=== PATIENT | female | born 1940 | race African-American/Black ===

== ENCOUNTER 2023-09-21 23:06 | Emergency (ER) | payer MEDICARE, SELFPAY ==
[2023-09-21 23:08] VITALS: BP 158/65; BMI 22.6
[2023-09-21 23:13] VITALS: BP 158/65
[2023-09-21 23:19] LABS: % Basophils 0.5 % (0-2); % Eosinophils 1.8 % (0-6); % Immature Granulocytes 0.2 % (0-0.5); % Lymphocytes 34.5 % (20.5-51.1); % Monocytes 10.3 % (1.7-9.3); % Neutrophils 52.7 % (42.2-75.2); Absolute Eosinophils 0.1 10^3/uL (0-0.7); Absolute Lymphocytes 1.9 10^3/uL (1.2-3.4); Absolute Monocytes 0.6 10^3/uL (0.1-0.6); Absolute Neutrophils 2.9 10^3/uL (1.4-6.5); Hematocrit 38.8 % (37.0-47.0); Hemoglobin 12.7 g/dL (12.0-16.0); Mean Corp Hgb Conc. 32.7 g/dL (33.0-37.0); Mean Corpuscular Hgb 31.8 pg (27.0-31.0); Mean Corpuscular Volume 97.2 fL (81.0-99.0); Mean Platelet Volume 9.9 fL (7.4-10.4); Nucleated Red Blood Cells % 0 %; Platelet Count 206 10^3/uL (130-400); Red Blood Cell Count 3.99 10^6/uL (4.20-5.40); Red Cell Dist. Width 12.4 % (11.5-14.5); White Blood Cell Count 5.6 10^3/uL (4.8-10.8)
[2023-09-21 23:31] LABS: ALT (SGPT) 21 U/L (0-35); AST (SGOT) 39 U/L (14-36); Albumin 4.4 g/dl (3.5-5.0); Alkaline Phosphatase 57 U/L (38-126); Blood Urea Nitrogen 25 mg/dl (7-17); Calcium 9.8 mg/dl (8.4-10.2); Carbon Dioxide 33 mmol/L (22-30); Chloride 98 mmol/L (98-107); Estimated Creatinine Clearance 50 ml/min; Glucose 93 mg/dl (70-99); Potassium 3.5 mmol/L (3.5-5.1); Sodium 134 mmol/L (135-145); Total Bilirubin 1.2 mg/dl (0.2-1.3); Total Protein 7.4 g/dl (6.3-8.2); eGFR > 60.00
--- NOTE | 2023-09-21 23:41 | ED.GENMED ---
History of Present Illness
General
Chief Complaint: Chest Pain
Source: patient, family and ambulance crew
Exam Limitations: none
Time Seen by Provider: 09/21/23 23:20
Nursing documentation reviewed up to this point in time: agreed with
Travel History
Have you had any contact with someone who has COVID-19?: No
Do you have any symptoms of coronavirus? Fever > 100 degrees, chills, cough, shortness of breath, sore throat, loss of taste or smell, muscle aches, or headache?: No
History of Present Illness
History of Present Illness:
83-year-old female presents emergency department from home after having chest pain in her lower chest. It has resolved. She is a poor historian, as she has a history of dementia. EMS gave 4 x 81 mg aspirin. She has had similar chest pain to this
in the past. She had a cardiac workup done at [facility].
Past History
Past History
ED Past Medical History: HTN, Hypothyroidism, Psychiatric (Depression) and Other (Dementia)
ED Past Surgical History: Other (Lumpectomy left breast)
Social History
Tobacco: Non-smoker
Alcohol: None
Drug: None
Living: with family
Review of Systems
Review of Systems
Allergies reviewed?: Yes
All Other Systems: Not applicable
Constitutional: Reports no symptoms
EENT: Reports no symptoms
Respiratory: Reports no symptoms
Cardiac: Reports chest pain
ABD/GI: Reports no symptoms
: Reports no symptoms
Musculoskeletal: Reports no symptoms
Neurological: Reports no symptoms
Endocrine: Reports no symptoms
Hematologic/Lymphatic: Reports no symptoms
Psychiatric: Reports no symptoms
Phy Exam
Physical Exam
Physical Exam:
Physical Exam
General: no apparent distress, not acutely ill
Neck: supple. no meningeal signs. normal posterior pharynx
Heart: s1/s2 regular rate and rhythm, no murmur. equal radial
pulses.
HEENT: Pupils equal round reactive to light, EOMI
Lungs: no acute respiratory distress. clear bilaterally
Abdomen: normal bowel sounds. not tender. no CVAT
Neuro: alert and oriented to person and place. no focal neurological deficits cranial nerves II through XII intact
Skin: no rash
Psychiatric: well kept. interactive and cooperative
Extremities: no edema. no calf tenderness. negative homans. good distal pulses
Scores
Heart Score for Chest Pain Patients
STEMI patient?: No
History: Slightly or Non-Suspicious
ECG: Normal
Age: >/= 65 years
Risk Factors: 1 or 2 Risk Factors
Troponin: </= Normal Limit
Heart Score for Chest Pain Patients: 3
Heart Score Risk: 2.5% MACE over next 6 weeks
Course
Orders/Labs/Results
Orders:
Orders
09/21/23 23:08
Electrocardiogram (*1) Urgent
Reason for Study: Chest Pain
Cardiac Monitoring- Treatment ONCE
EKG- Treatment ONCE
IV Insert/Care/Rem.- Treatment PRN
O2 Therapy [RESP] Urgent
Titrate/Wean O2 to maintain O2 sat greater than (%): 90
Special Instructions: Maintain sats >/=90%
Pulse Ox/spot Check [RESP] Urgent
Quantity: 1
Special Instructions: ON ROOM AIR
09/21/23 23:11
Complete Blood Count/With Diff Urgent
Comprehensive Metabolic Panel Urgent
Lipase Urgent
Comment: ADD ON
Troponin I Urgent
09/22/23 00:49
Add On- LAB Urgent
Tests Added?: lipase
09/22/23 01:57
Troponin I Urgent
Abnormal Lab Results
09/21/23
23:11
RBC 3.99 L 10^6/uL
(4.20-5.40)
MCH 31.8 H pg
(27.0-31.0)
MCHC 32.7 L g/dL
(33.0-37.0)
Monocytes % 10.3 H %
(1.7-9.3)
Sodium 134 L mmol/L
(135-145)
Carbon Dioxide 33 H mmol/L
(22-30)
BUN 25 H mg/dl
(7-17)
AST 39 H U/L
(14-36)
Lipase 323 H U/L
(23-300)
09/21/23 23:11
09/21/23 23:11
Vital Signs
Initial and Last Documented VS:
Initial Vital Signs
Temp Pulse Resp BP Pulse Ox
99.0 F 63 15 158/65 100
09/21/23 23:08 09/21/23 23:08 09/21/23 23:08 09/21/23 23:08 09/21/23 23:08
Last Documented Vital Signs
Temp Pulse Resp BP Pulse Ox
99.0 F 54 13 120/67 99
09/21/23 23:08 09/22/23 03:00 09/22/23 03:00 09/22/23 03:00 09/22/23 02:45
MDM/Problems Addressed
Differential Diagnosis Includes:
ACS, PE, musculoskeletal pain
MDM/Problems Addressed:
83-year-old female with transient chest pain, resolved without intervention. Patient denies chest pain at this time. Initial troponin negative, no signs of ischemia on EKG. Will repeat troponin, if negative will discharge home.
Chronic conditions affecting care: HTN
Acute Exacerbation and/or Progression of Chronic Illness: HTN and Other (Alzheimer's)
*Pulse Oximetry
Patient hypoxic: no
*EKG
Interpreted by ED Provider?: Yes
EKG Intrepretation Date: 09/21/23
EKG Intrepretation Time: 23:10
Interpretation: abnormal
Comparison EKG: no comparison EKG present
Heart Rate: 69
Rate: normal
Rhythm: sinus
Winn: left axis deviation
Interval: normal interval
QRS Pattern: normal QRS
Ischemia: no ischemia
*Custodial Foreman Interpretation
Rate: normal
Interpretation: normal
Heart Rate: 65
Rhythm: sinus
*Critical Care Note
Total Time (30-74mins, 75-104mins- exclusive of procedures): Not Applicable
Patient Management
Social determinants of health affecting care: Living situation and Strong social support
Update Note
Update Note:
Repeat troponin negative, mild elevation in lipase nontender abdomen, do not suspect pancreatitis
ED Attending Note
-
Portions of this chart may have been created with voice recognition software.� Occasional wrong word or��sound alike� substitutions may have occurred due to the inherent limitations of voice recognition software.
Discharge Plan
Departure
Patient Disposition: Home (Routine Discharge)
Date of Disposition: 09/22/23
Time of Disposition: 02:57
Patient with high blood pressure during this ER visit?: Yes
Condition: Good
Discharge Problem:
Chest pain
Instructions: Chest Pain DCA Follow Up, BLOOD PRESSURE
Prescriptions:
No Action
latanoprost 0.005 % Drops
1 drp OPHTHALMIC (EYE) DAILY
donepezil 5 mg Tablet
5 mg PO HS
Rx Instructions:
stopped 09/20, wanted to give a break for a week.
levothyroxine 25 mcg Tablet
25 mcg PO DAILY
timolol 0.5 % Drops
1 drp OPHTHALMIC (EYE) DAILY
hydrochlorothiazide 12.5 mg Capsule
12.5 mg PO DAILY
sertraline 50 mg Tablet
50 mg PO DAILY
calcium carbonate 1,000 mg Tablet
1,250 mg PO DAILY
memantine 10 mg Tablet
10 mg PO BID
cholecalciferol (vitamin D3) [Vitamin D3] 25 mcg (1,000 unit) Tablet
25 mcg PO DAILY
coenzyme Q10 100 mg Tablet
100 mg PO DAILY
Referrals:
UNKNOWN - PT DOES,NOT KNOW [Family Provider] -
Interventions
Interventions:
*Risk Screen - Suicide Last Done: 09/21/23 23:08
*General Assessment Last Done: 09/21/23 23:08
*Neglect/Abuse Screening Last Done: 09/21/23 23:08
ED- Fall Risk Assessment Last Done: 09/22/23 00:16
*ED COVID-19 Vaccine History Last Done: 09/21/23 23:08
*Nursing Disposition Last Done: 09/22/23 03:20
ED- Cardiac Assessment Last Done: 09/22/23 00:16
Discharge Date and Time
Discharge Date/Time: 09/22/23 03:20
[2023-09-21 23:42] LABS: Troponin I < 0.012 ng/ml
[2023-09-22 00:08] VITALS: BP 151/78
--- NOTE | 2023-09-22 00:14 | EDRN ---
Patient ambulated to the restroom and back in bed sleeping, updated daughter on lab results and plan for repeat blood test around 0200, no further complaints or needs right now.
[2023-09-22 01:00] VITALS: BP 150/75
[2023-09-22 01:20] LABS: Lipase 323 U/L (23-300)
[2023-09-22 02:05] VITALS: BP 154/75
[2023-09-22 02:31] LABS: Troponin I < 0.012 ng/ml
[2023-09-22 03:00] VITALS: BP 120/67
== END 2023-09-22 03:20 | disposition home or self-care (01) ==
LOC: EMR 23:06
PROVIDERS: Emergency Medicine; EMERGENCY PHYSICIAN Emergency Medicine
DX: R07.89 Other chest pain (principal); G30.9 Alzheimer's disease, unspecified; F02.83 Dementia in other diseases classified elsewhere, unspecified severity, with mood disturbance; E03.9 Hypothyroidism, unspecified; F32.A Depression, unspecified; I10 Essential (primary) hypertension
CPT/HCPCS: 99283; 80053; 83690; 84484; 85025; 93005

== ENCOUNTER 2024-08-21 07:07 | Emergency (ER) | payer MEDICARE, SELFPAY ==
[2024-08-21 07:13] VITALS: BP 169/83
[2024-08-21 07:39] LABS: % Eosinophils 4.2 % (0-6); % Immature Granulocytes 0.2 % (0-0.5); % Lymphocytes 36.5 % (20.5-51.1); % Monocytes 8.4 % (1.7-9.3); % Neutrophils 49.7 % (42.2-75.2); Absolute Eosinophils 0.2 10^3/uL (0-0.7); Absolute Lymphocytes 1.5 10^3/uL (1.2-3.4); Absolute Monocytes 0.3 10^3/uL (0.1-0.6); Hematocrit 43.7 % (37.0-47.0); Hemoglobin 13.9 g/dL (12.0-16.0); Mean Corp Hgb Conc. 31.8 g/dL (33.0-37.0); Mean Corpuscular Hgb 31.4 pg (27.0-31.0); Mean Corpuscular Volume 98.6 fL (81.0-99.0); Mean Platelet Volume 10.9 fL (7.4-10.4); Nucleated Red Blood Cells % 0 %; Platelet Count 188 10^3/uL (130-400); Red Blood Cell Count 4.43 10^6/uL (4.20-5.40); Red Cell Dist. Width 12.2 % (11.5-14.5)
--- NOTE | 2024-08-21 07:42 | ED.GENMED ---
History of Present Illness
<Aisha Stockton MD, Resident - Last Filed: 08/21/24 09:53>
General
Chief Complaint: Fatigue
Source: patient and family
Exam Limitations: dementia
Time Seen by Provider: 08/21/24 07:14
Nursing documentation reviewed up to this point in time: agreed with
History of Present Illness
History of Present Illness:
83yo F with PMH dementia, HTN, hypothyroidism who presents from home to ED for fatigue/difficulty rousing. She lives with her daughter who tried to wake the patient at 6:20am but says it was much more difficult than usual. When she did wake up,
patient was listless, confused, slumped over. At time of evaluation in ED, daughter reports patient is improved though still not entirely at her baseline mental status.
Prior to this, she was in her usual state of health-- had some dizziness yesterday and body aches this morning which is her baseline. She reports a month of constipation with occasional blood streaks on toilet paper. Otherwise review of systems was
negative. Her recent medication changes include starting atorvastatin 08/05 and changing dose of galantamine from BID to once nightly on 08/08.
Past History
<Aisha Stockton MD, Resident - Last Filed: 08/21/24 09:53>
Past History
ED Past Medical History: HTN, Hypothyroidism, Psychiatric (Depression) and Other (Dementia)
ED Past Surgical History: Other (Lumpectomy left breast)
Patient has exhibited threatening behavior?: No
Social History
Tobacco: Non-smoker
Alcohol: None
Drug: None
Living: with family
Family History
Family History: Other (noncontributory)
Review of Systems
<Aisha Stockton MD, Resident - Last Filed: 08/21/24 09:53>
Review of Systems
Allergies reviewed?: Yes
Constitutional: Reports fatigue (see HPI); Denies fever or chills
EENT: Reports no symptoms
Respiratory: Reports no symptoms; Denies cough, hemoptysis or trouble breathing
Cardiac: Reports no symptoms; Denies chest pain, palpitations or syncope
ABD/GI: Reports constipated; Denies abdominal pain, nausea, vomiting, diarrhea or black stools
: Reports no symptoms
Musculoskeletal: Reports other (diffuse body aches in AM)
Skin: Reports no symptoms
Neurological: Reports dizzy
Endocrine: Reports no symptoms
Hematologic/Lymphatic: Reports no symptoms
Psychiatric: Reports no symptoms
Phy Exam
<Aisha Stockton MD, Resident - Last Filed: 08/21/24 09:53>
General Physical Exam
General Presentation: well appearing and no apparent distress
General age: appears stated age
General Skin: warm and dry
General Habitus: elderly
General Mental: alert
General Hydration: appears well hydrated
Cardiovascular Exam
Cardiovascular Exam: regular rate/rhythm, no edema and no murmur
Pulmonary Exam
Pulmonary Exam: lungs clear, no respiratory distress, no crackles, no rhonchi, no wheezing and no cough
Neurological Exam
Neurological Exam: alert, oriented x3 (oriented to person, place, winter/almost spring 2024) and speech normal
Course
<Aisha Stockton MD, Resident - Last Filed: 08/21/24 09:53>
Orders/Labs/Results
Orders:
Orders
08/21/24 07:23
COVID-19 Antigen Urgent
Source: Nasal Swab
Complete Blood Count/With Diff Urgent
Comprehensive Metabolic Panel Urgent
Influenza A+B Rapid Molecular Urgent
ELE Source: Nasal Swab
Specimen Description:
08/21/24 07:40
Electrocardiogram (*1) Urgent
Reason for Study: Fatigue / Weakness
CT Head W/o Iv Contrast Urgent
Comment:
Reason For Exam: altered mental status
EKG- Treatment ONCE
08/21/24 07:41
CR Chest - 2 Views Urgent
Comment:
Reason For Exam: rule out pneumonia
08/21/24 07:53
Urinalysis Reflex To Culture Urgent
Date Specimen was Collected: 08/21/24
Time Specimen was Collected: 07:52
Abnormal Lab Results
08/21/24
07:23
WBC 4.0 L 10^3/uL
(4.8-10.8)
MCH 31.4 H pg
(27.0-31.0)
MCHC 31.8 L g/dL
(33.0-37.0)
MPV 10.9 H fL
(7.4-10.4)
Carbon Dioxide 33 H mmol/L
(22-30)
Glucose 104 H mg/dl
(70-99)
08/21/24 07:23
08/21/24 07:23
Vital Signs
Initial and Last Documented VS:
Initial Vital Signs
Temp Pulse Resp BP Pulse Ox
98.1 F 61 16 169/83 95
08/21/24 07:13 08/21/24 07:13 08/21/24 07:13 08/21/24 07:13 08/21/24 07:13
Last Documented Vital Signs
Temp Pulse Resp BP Pulse Ox
98.1 F 60 14 123/104 99
08/21/24 07:13 08/21/24 09:26 08/21/24 09:26 08/21/24 09:26 08/21/24 09:26
Christallt;Samir Wyman, DO - Last Filed: 08/21/24 14:06>
Orders/Labs/Results
Orders:
Orders
08/21/24 07:23
COVID-19 Antigen Urgent
Source: Nasal Swab
Complete Blood Count/With Diff Urgent
Comprehensive Metabolic Panel Urgent
Influenza A+B Rapid Molecular Urgent
ELE Source: Nasal Swab
Specimen Description:
08/21/24 07:40
Electrocardiogram (*1) Urgent
Reason for Study: Fatigue / Weakness
CT Head W/o Iv Contrast Urgent
Comment:
Reason For Exam: altered mental status
EKG- Treatment ONCE
08/21/24 07:41
CR Chest - 2 Views Urgent
Comment:
Reason For Exam: rule out pneumonia
08/21/24 07:53
Urinalysis Reflex To Culture Urgent
Date Specimen was Collected: 08/21/24
Time Specimen was Collected: 07:52
Abnormal Lab Results
08/21/24
07:23
WBC 4.0 L 10^3/uL
(4.8-10.8)
MCH 31.4 H pg
(27.0-31.0)
MCHC 31.8 L g/dL
(33.0-37.0)
MPV 10.9 H fL
(7.4-10.4)
Carbon Dioxide 33 H mmol/L
(22-30)
Glucose 104 H mg/dl
(70-99)
08/21/24 07:23
08/21/24 07:23
Vital Signs
Initial and Last Documented VS:
Initial Vital Signs
Temp Pulse Resp BP Pulse Ox
98.1 F 61 16 169/83 95
08/21/24 07:13 08/21/24 07:13 08/21/24 07:13 08/21/24 07:13 08/21/24 07:13
Last Documented Vital Signs
Temp Pulse Resp BP Pulse Ox
98.1 F 60 14 123/104 99
08/21/24 07:13 08/21/24 09:26 08/21/24 09:26 08/21/24 09:26 08/21/24 09:26
<Aisha Stockton MD, Resident - Last Filed: 08/21/24 09:53>
MDM/Problems Addressed
Differential Diagnosis Includes:
TIA, cardiac arrhythmia, electrolyte abnormality, infection
MDM/Problems Addressed:
83yo F with PMH dementia, HTN, hypothyroidism who presents to from home due to AMS
Will check CBC, CMP, flu/covid swabs, EKG, UA, head CT, chest xray
Given patient is improving/almost at her baseline mental status and unknown last normal time, not a candidate for TNK
Keep on continuous library monitor and await pending results
<Aisha Stockton MD, Resident - Last Filed: 08/21/24 09:53>
*Critical Care Note
Total Time (30-74mins, 75-104mins- exclusive of procedures): Not Applicable
<Aisha Stockton MD, Resident - Last Filed: 08/21/24 09:53>
Update Note
Update Note:
0915: At bedside to update patient/family. Patient sleeping comfortably and was not disturbed. Per daughter, patient has returned to her baseline metal status-- is easily arousable and conversant as usual. CBC/CMP unremarkable, flu/covid negative,
head CT no acute stroke/intracranial pathology, chest xray with no signs of pneumonia, EKG sinus bradycardia (HR 58). Await UA results.
0930: UA noninfectious. Patient sleeping comfortably but easily arousable. Reports she is feeling 'much better.' Reviewed results with patient and daughter at bedside. Stable for discharge home. Recommend decreasing dose of galantamine from 8mg
nightly to 4mg nightly. Emphasized importance of close follow up with PCP and neurologist who is the prescriber of galantamine. They were both understanding and agreeable with plan.
ED Attending Note
<Aisha Stockton MD, Resident - Last Filed: 08/21/24 09:53>
-
Portions of this chart may have been created with voice recognition software.� Occasional wrong word or��sound alike� substitutions may have occurred due to the inherent limitations of voice recognition software.
<Samir Wyman, DO - Last Filed: 08/21/24 14:06>
ED Attending Note
Patient seen and examined by attending physician: Yes
I performed a history and physical exam of patient and discussed management with resident, I reviewed resident's note and agree with documented findings and plan of care.: Yes
ED Attending Note:
I reviewed and agree with history treatment plan by Aisha Stockton MD. My exam revealed
Physical Exam
General: Elderly, no apparent distress, not acutely ill
Neck: supple. no meningeal signs. normal posterior pharynx
Heart: s1/s2 regular rate and rhythm, no murmur. equal radial
pulses.
HEENT: Pupils equal round reactive to light, EOMI
Lungs: no acute respiratory distress. clear bilaterally
Abdomen: normal bowel sounds. not tender. no CVAT
Neuro: alert and oriented to person. no focal neurological deficits cranial nerves II through XII intact
Skin: no rash
Psychiatric: well kept. interactive and cooperative
Extremities: no edema. no calf tenderness. negative homans. good distal pulses
83-year-old female with altered mental status, difficult to arouse. Suspect this was due to a change in her galantamine. Do not suspect CVA or TIA. Stable for discharge. Will have her take 4 mg instead of 8 mg of galantamine and follow-up with
primary care.
Discharge Plan
Departure
Patient Disposition: Home (Routine Discharge)
Date of Disposition: 08/21/24
Time of Disposition: 09:25
Patient with high blood pressure during this ER visit?: Yes
Discharge Problem:
Change in mental state
Instructions: BLOOD PRESSURE
Prescriptions:
No Action
latanoprost 0.005 % Drops
1 drp OPHTHALMIC (EYE) DAILY
donepezil 5 mg Tablet
5 mg PO HS
Rx Instructions:
stopped /, wanted to give a break for a week.
levothyroxine 25 mcg Tablet
25 mcg PO DAILY
timolol 0.5 % Drops
1 drp OPHTHALMIC (EYE) DAILY
hydrochlorothiazide 12.5 mg Capsule
12.5 mg PO DAILY
sertraline 50 mg Tablet
50 mg PO DAILY
calcium carbonate 1,000 mg Tablet
1,250 mg PO DAILY
memantine 10 mg Tablet
10 mg PO BID
cholecalciferol (vitamin D3) [Vitamin D3] 25 mcg (1,000 unit) Tablet
25 mcg PO DAILY
coenzyme Q10 100 mg Tablet
100 mg PO DAILY
Referrals:
Elias Murillo DO [Non-Admitting Privileges] - Next open appointment (Call your Primary Care Provider to schedule follow up appointment after being seen in the Emergency Room.)
Reginald Matta MD [Non-Admitting Privileges] - Next open appointment (Call your Neurologist to schedule follow up appointment and discuss dose of galantamine. )
UNKNOWN - PT DOES,NOT KNOW [Family Provider] -
Activity Restrictions/Additional Instructions:
You were seen in the Emergency Room for altered mental status and lethargy.
Your head CT, chest xray, EKG, blood work, and urinalysis did not show a cause of your symptoms.
Your flu test was negative, and your covid test was negative.
The recent increase in nighttime galantamine dose may have contributed to this. You should decrease the dose of galantamine to 4mg at night.
Please call your Primary Care Provider to schedule close follow up after being seen in the Emergency Room.
Please call your neurologist to schedule close follow up and to discuss the dose of galantamine.
Return to the Emergency Room for worsening symptoms or new concerns.
Interventions
Interventions:
*Risk Screen - Suicide Last Done: 08/21/24 07:14
*General Assessment Last Done: 08/21/24 07:14
*Neglect/Abuse Screening Last Done: 08/21/24 07:14
ED- Fall Risk Assessment Last Done: 08/21/24 10:06
*ED COVID-19 Vaccine History Last Done: 08/21/24 07:14
*Nursing Disposition Last Done: 08/21/24 10:06
Discharge Date and Time
Discharge Date/Time: 08/21/24 10:07
Print Language: TURKISH
[2024-08-21 07:46] LABS: ALT (SGPT) 18 U/L (0-35); AST (SGOT) 27 U/L (14-36); Albumin 4.2 g/dl (3.5-5.0); Alkaline Phosphatase 63 U/L (38-126); Blood Urea Nitrogen 15 mg/dl (7-17); Calcium 9.8 mg/dl (8.4-10.2); Carbon Dioxide 33 mmol/L (22-30); Chloride 100 mmol/L (98-107); Glucose 104 mg/dl (70-99); Potassium 3.7 mmol/L (3.5-5.1); Sodium 140 mmol/L (135-145); Total Bilirubin 1.3 mg/dl (0.2-1.3); Total Protein 6.9 g/dl (6.3-8.2); eGFR > 60.00
[2024-08-21 07:51] LABS: COVID-19 Antigen Negative (Negative)
[2024-08-21 08:35] LABS: Urine Albumin Negative (Neg - Trace); Urine Bilirubin Negative (Negative); Urine Character Cloudy (Clear); Urine Color Yellow; Urine Glucose Negative (Negative); Urine Ketone Negative (Negative); Urine Leukocyte Negative (Negative); Urine Nitrite Negative (Negative); Urine Occult Blood Negative (Negative); Urine Urobilinogen Negative (Neg - 1+)
[2024-08-21 09:26] VITALS: BP 123/104
== END 2024-08-21 10:07 | disposition home or self-care (01) ==
LOC: EMR 07:07
PROVIDERS: Student in an Organized Health Care Education/Training Program; EMERGENCY PHYSICIAN Emergency Medicine
DX: R41.82 Altered mental status, unspecified (principal); I10 Essential (primary) hypertension; E03.9 Hypothyroidism, unspecified; Z11.52 Encounter for screening for COVID-19
CPT/HCPCS: 99285; 70450; 71046; 80053; 81003; 85025; 87502; 87811; 93005

== ENCOUNTER 2024-09-19 08:04 | Emergency (ER) | payer MEDICARE, SELFPAY ==
[2024-09-19] VITALS (18 sets, daily range): BP systolic 95–141; BP diastolic 52–104; PULSE 65–69; O2SAT 95; BMI 22.8
[2024-09-19 08:33] LABS: % Basophils 0.5 % (0-2); % Eosinophils 0.3 % (0-6); % Immature Granulocytes 0.5 % (0-0.5); % Lymphocytes 16.8 % (20.5-51.1); % Monocytes 9.3 % (1.7-9.3); % Neutrophils 72.6 % (42.2-75.2); Absolute Lymphocytes 1.1 10^3/uL (1.2-3.4); Absolute Monocytes 0.6 10^3/uL (0.1-0.6); Absolute Neutrophils 4.8 10^3/uL (1.4-6.5); Hematocrit 40.7 % (37.0-47.0); Hemoglobin 12.8 g/dL (12.0-16.0); Mean Corp Hgb Conc. 31.4 g/dL (33.0-37.0); Mean Corpuscular Hgb 31.7 pg (27.0-31.0); Mean Corpuscular Volume 100.7 fL (81.0-99.0); Mean Platelet Volume 10.5 fL (7.4-10.4); Nucleated Red Blood Cells % 0 %; Platelet Count 159 10^3/uL (130-400); Red Blood Cell Count 4.04 10^6/uL (4.20-5.40); Red Cell Dist. Width 12.3 % (11.5-14.5); White Blood Cell Count 6.6 10^3/uL (4.8-10.8)
--- NOTE | 2024-09-19 08:33 | ED.GENMED ---
History of Present Illness
General
Chief Complaint: Failure to Thrive
Source: patient, records and ambulance crew
Exam Limitations: dementia
Time Seen by Provider: 09/19/24 08:21
Nursing documentation reviewed up to this point in time: agreed with
History of Present Illness
History of Present Illness:
84-year-old female with a history of dementia, hypertension, hypothyroidism who presents to the ER from home where she lives with her daughter; presents via EMS for evaluation of generalized weakness. Patient is slightly limited as a historian due
to her dementia but she can provide some reasonable background and she is actually oriented x 3 here in the ER today. She says that she has been feeling weak and mildly dizzy specifically with standing up. She cannot tell me exactly how long she
has been feeling this way. She says she does not have any headache, chest pain, abdominal pain, back pain. She has not noticed any cough. Denies any vomiting or diarrhea recently. She says that this was the reason her daughter called EMS.
According to EMS report patient was noted to be weaker than usual requiring more assistance when getting up and going to the bathroom today and was sent to the ER for assessment. I did reach out to patient's daughter to try and get collateral
history directly from her but no answer x 1�will try again later.
UPDATE
Daughter now at bedside provides collateral history�she essentially confirmed patient's story. She says that recently patient had been having some dizziness was seen in the ER few weeks ago for this and it was thought to be related to galantamine.
This was discontinued about 2 weeks ago by primary and dizziness had improved. Today patient got up to go to the bathroom and wash her face and daughter was helping her as usual. Daughter says that while she was washing her face patient began to
feel dizzy and 'slumped down' daughter says she transiently passed out. Daughter laid her down in bed and called EMS to bring her to the hospital for assessment. Daughter does note she has had a mild cough the past few days but otherwise in her
normal state of health.
Past History
Past History
ED Past Medical History: HTN, Hypothyroidism, Psychiatric (Depression) and Other (Dementia)
ED Past Surgical History: Other (Lumpectomy left breast)
Patient has exhibited threatening behavior?: No
Social History
Tobacco: Non-smoker
Alcohol: None
Drug: None
Living: with family
Family History
Family History: Other (noncontributory)
Review of Systems
Review of Systems
All Other Systems: ROS reviewed and negative except as documented in HPI and ROS
Constitutional: Reports fatigue
EENT: Denies sore throat
Respiratory: Denies cough or trouble breathing
Cardiac: Denies chest pain
ABD/GI: Denies abdominal pain, nausea, vomiting or diarrhea
: Denies dysuria or flank pain
Musculoskeletal: Denies neck pain or back pain
Neurological: Reports dizzy; Denies headache
Phy Exam
Physical Exam
Physical Exam:
General: Awake, alert, oriented x3; no acute distress
Head: Normocephalic, atraumatic
Eyes: Conjunctiva normal, EOMI without nystagmus, pupils equal round and reactive to light bilaterally
Throat: Airway intact, handling secretions
Neck: Trachea midline, supple without meningismus
Lungs: Clear to auscultation bilaterally, no wheezing, rales, rhonchi
Heart: Regular rate and rhythm, systolic murmur
Abd: Soft, non distended, nontender
Neuro: Cranial nerves intact, speech fluid, motor and sensory intact in all extremities
Extremities: No edema in extremities, equal pulses in all extremities
Scores
Heart Failure Risk
Heart Failure Risk Score: Not Applicable
Heart Score for Chest Pain Patients
STEMI patient?: Not applicable
Withdrawal Assessment of Alcohol
Withdrawal Assessment Completed?: Not applicable
Course
Orders/Labs/Results
Orders:
Orders
09/19/24 08:19
CMP [Comprehensive Metabolic Panel] Urgent
Complete Blood Count/With Diff Urgent
Free T4 Urgent
TSH Reflex To Free T4 Urgent
Comment: ADD ON
09/19/24 08:31
Orthostatic VS- Treatment ONCE
09/19/24 08:32
0.9% Sodium Chloride 1000 ml [Nss] 1,000 ml IV BOLUS
09/19/24 08:37
CR Chest - 2 Views Urgent
Comment:
Reason For Exam: weakness
09/19/24 08:40
Add On- LAB Urgent
Tests Added?: tsh with reflex to free t4
09/19/24 09:00
Electrocardiogram (*1) Urgent
Reason for Study: Fatigue / Weakness
EKG- Treatment ONCE
COVID-19 Antigen Urgent
Source: Nasal Swab
Influenza A+B Rapid Molecular Urgent
ELE Source: Nasal Swab
Specimen Description:
09/19/24 12:51
Urinalysis Reflex To Culture Urgent
Date Specimen was Collected: 09/19/24
Time Specimen was Collected: 12:49
Urine Microscopic Reflex Cult Urgent
09/19/24 14:17
Pt Eval And Treat Urgent
Activity Level: With Assistance
Abnormal Lab Results
09/19/24 09/19/24
08:19 12:51
RBC 4.04 L 10^6/uL
(4.20-5.40)
MCV 100.7 H fL
(81.0-99.0)
MCH 31.7 H pg
(27.0-31.0)
MCHC 31.4 L g/dL
(33.0-37.0)
MPV 10.5 H fL
(7.4-10.4)
Absolute Lymphs (auto) 1.1 L 10^3/uL
(1.2-3.4)
Lymphocytes % 16.8 L %
(20.5-51.1)
Carbon Dioxide 33 H mmol/L
(22-30)
Glucose 138 H mg/dl
(70-99)
Total Bilirubin 1.8 H mg/dl
(0.2-1.3)
TSH (Reflex) 7.37 H uIU/ml
(0.47-4.68)
Ur Occult Blood Reflex 1+ A
(Negative)
09/19/24 08:19
09/19/24 08:19
Vital Signs
Initial and Last Documented VS:
Initial Vital Signs
Temp Pulse Resp BP Pulse Ox
36.7 C 69 16 141/66 97
09/19/24 08:08 09/19/24 08:08 09/19/24 08:08 09/19/24 08:08 09/19/24 08:08
Last Documented Vital Signs
Temp Pulse Resp BP Pulse Ox
36.7 C 94 23 127/72 97
09/19/24 08:08 09/19/24 15:24 09/19/24 15:24 09/19/24 15:24 09/19/24 15:00
MDM/Problems Addressed
Differential Diagnosis Includes:
Dehydration, anemia, electrolyte derangement, orthostatic symptoms, dysrhythmia, infection (UTI/pna/viral), polypharmacy; by history symptoms do not sound vertiginous, low suspicion for inner ear pathology/vertigo
MDM/Problems Addressed:
84-year-old female presents to the ER for evaluation of weakness/dizziness with positional change this morning. Vitals and exam as above. Check stat EKG. Check labs including a CBC and a CMP. Will check urinalysis, viral swabs, chest x-ray for
basic infectious workup. Will check orthostatic vital signs. Provide some fluids. Reassess after the above.
Labs reviewed: CBC no clinically significant abnormalities. CMP no clinically significant abnormalities. Urinalysis no infection. COVID and flu negative. Chest x-ray negative for any acute disease. EKG shows sinus rhythm. No clear acute
pathology to account for her generalized weakness. I had a long discussion with patient's daughter�offered admission for observation but daughter would prefer to take patient home to her normal environment. We did have PT evaluate patient and
patient was able to get up and ambulate with PT and daughter feels that she is close to her baseline ambulatory status and feels comfortable taking her home. Using shared decision making we will discharge, urged daughter to follow-up with PCP. We
did have continuous pillowcase cutter speak with daughter about arranging for home PT and resources.
Chronic conditions affecting care:
Dementia
*Pulse Oximetry
Patient hypoxic: no
*Critical Care Note
Total Time (30-74mins, 75-104mins- exclusive of procedures): Not Applicable
Data Reviewed
Review of Other/Old Records Reveals: Labs and Records
Source: patient, records, family and ambulance crew
Patient Management
Social determinants of health affecting care: Strong social support
Escalation/DeEscalation of care consider admission/obs:
Offered admission�shared decision making discharge
ED Attending Note
-
Portions of this chart may have been created with voice recognition software.� Occasional wrong word or��sound alike� substitutions may have occurred due to the inherent limitations of voice recognition software.
Discharge Plan
Departure
Patient Disposition: Home (Routine Discharge)
Date of Disposition: 09/19/24
Time of Disposition: 15:42
Patient with high blood pressure during this ER visit?: No
Discharge Problem:
Weakness
Instructions: Weakness - ED discharge instructions
Prescriptions:
No Action
latanoprost 0.005 % Drops
1 drp OPHTHALMIC (EYE) DAILY
donepezil 5 mg Tablet
5 mg PO HS
Rx Instructions:
stopped 09/20, wanted to give a break for a week.
levothyroxine 25 mcg Tablet
25 mcg PO DAILY
timolol 0.5 % Drops
1 drp OPHTHALMIC (EYE) DAILY
hydrochlorothiazide 12.5 mg Capsule
12.5 mg PO DAILY
sertraline 50 mg Tablet
50 mg PO DAILY
calcium carbonate 1,000 mg Tablet
1,250 mg PO DAILY
memantine 10 mg Tablet
10 mg PO BID
cholecalciferol (vitamin D3) [Vitamin D3] 25 mcg (1,000 unit) Tablet
25 mcg PO DAILY
coenzyme Q10 100 mg Tablet
100 mg PO DAILY
Referrals:
Elias Murillo DO [Family Provider] - Follow up in 5-7 days
Activity Restrictions/Additional Instructions:
Thank you for visiting the Emergency Department at [facility].
1. Please schedule a follow up appointment as directed. Call first thing tomorrow morning to make an appointment.
2. If indicated, please take your medications as instructed and indicated on discharge paperwork.
3. If any of your symptoms do not improve, or persist, or become more severe within 6-12 hours, please return to the emergency department for further care.
4. Please return to the emergency department if you develop a headache, neck pain/stiffness, fever greater than 100.4F, chest pain, shortness of breath, persistent nausea, vomiting, slurred speech, difficulty walking, numbness/tingling, weakness,
signs of infection or any other symptoms that are worrisome to you.
Please call [phone] if you have any questions.
Interventions
Interventions:
*Risk Screen - Suicide Last Done: 09/19/24 08:08
*General Assessment Last Done: 09/19/24 08:08
*Neglect/Abuse Screening Last Done: 09/19/24 08:08
*ED COVID-19 Vaccine History Last Done: 09/19/24 12:04
Discharge Date and Time
Print Language: ROMANSH
[2024-09-19 08:50] LABS: ALT (SGPT) 19 U/L (0-35); AST (SGOT) 27 U/L (14-36); Albumin 3.7 g/dl (3.5-5.0); Alkaline Phosphatase 61 U/L (38-126); Blood Urea Nitrogen 13 mg/dl (7-17); Calcium 9.3 mg/dl (8.4-10.2); Carbon Dioxide 33 mmol/L (22-30); Chloride 100 mmol/L (98-107); Estimated Creatinine Clearance 49 ml/min; Glucose 138 mg/dl (70-99); Potassium 3.5 mmol/L (3.5-5.1); Sodium 138 mmol/L (135-145); Total Bilirubin 1.8 mg/dl (0.2-1.3); Total Protein 6.4 g/dl (6.3-8.2); eGFR > 60.00
[2024-09-19] MEDS: NSS 1000 IV (08:57)
[2024-09-19 09:27] LABS: COVID-19 Antigen Negative (Negative)
[2024-09-19 11:40] LABS: TSH Reflex To Free T4 7.37 uIU/ml (0.47-4.68)
[2024-09-19 13:17] LABS: Urine Albumin Negative (Neg - Trace); Urine Bilirubin Negative (Negative); Urine Character Clear (Clear); Urine Color Yellow; Urine Glucose Negative (Negative); Urine Ketone Negative (Negative); Urine Leukocyte Negative (Negative); Urine Nitrite Negative (Negative); Urine Occult Blood 1+ (Negative); Urine Urobilinogen Negative (Neg - 1+)
[2024-09-19 14:32] LABS: Urine Amorphous Seen; Urine Red Blood Cell 0-2 /HPF (0-2); Urine Squamous Cell 0-2 /LPF (Few); Urine White Cell 0-2 /HPF (0-5)
[2024-09-19 16:05] LABS: Free T4 1.34 ng/dl (0.78-2.19)
--- NOTE | 2024-09-19 16:18 | CM ---
CM consulted for VN
Bedside meeting with pt and dtr
Pt resides alone in a 2nd floor apartment with n elevator access
Dtr involved and available for support
PCP- Elias Murillo
PT issued WW
Referral to [facility] per pt request
Discharge Disposition- home with [facility] and new WW
== END 2024-09-19 16:57 | disposition home or self-care (01) ==
LOC: EMR 08:04
PROVIDERS: EMERGENCY PHYSICIAN Emergency Medicine; FAMILY PHYSICIAN Family Medicine
DX: R53.1 Weakness (principal); F03.93 Unspecified dementia, unspecified severity, with mood disturbance; I10 Essential (primary) hypertension; E03.9 Hypothyroidism, unspecified
CPT/HCPCS: 99283; 96360; 71046; 80053; 81003; 81015; 84439; 84443; 85025; 87502; 87811; 93005